=== PATIENT | female | born 1995 | race Two or more races ===

== ENCOUNTER 2021-12-20 15:10 | Inpatient (IN) | payer OTHER ==
[~2021-12-20] VITALS: Ht 157.5 cm; Wt 64.0 kg
[2021-12-20] MEDS ORDERED: PRENATAL TABLE1 EAC3 PO (16:48)
[2021-12-21] MEDS ORDERED: VITAMIN B-650 MG (10:24)
== END 2021-12-22 13:13 | disposition home or self-care (01) | DRG 768 ==
LOC: LDR 15:10 → OB/GYN 17:51
PROVIDERS: ADMIT Obstetrics & Gynecology; ATTEND Obstetrics & Gynecology
PROC: 10E0XZZ Delivery of Products of Conception, External Approach (ICD-10-PCS; principal; 2021-12-20)
PROC: 0DQR0ZZ Repair Anal Sphincter, Open Approach (ICD-10-PCS; 2021-12-20)
PROC: 4A1HXCZ Monitoring of Products of Conception, Cardiac Rate, External Approach (ICD-10-PCS; 2021-12-20)
DX: O70.21 Third degree perineal laceration during delivery, IIIa (principal); Z37.0 Single live birth; Z3A.37 37 weeks gestation of pregnancy; Z20.822 Contact with and (suspected) exposure to COVID-19